=== PATIENT | female | born 1935 | race Two or more races ===

== ENCOUNTER 2016-11-16 17:56 | Emergency (ER) | payer OTHER ==
[~2016-11-16] VITALS: Ht 167.6 cm; Wt 70.8 kg
[2016-11-16 17:59] VITALS: BP 145/67
[2016-11-16] MEDS ORDERED: IBUPROFEN 600 MG TAB PO ONE (20:15)
== END 2016-11-16 20:36 | disposition home or self-care (01) ==
LOC: ER 18:04
DX: S20.211A Contusion of right front wall of thorax, initial encounter (principal); S20.311A Abrasion of right front wall of thorax, initial encounter; V49.9XXA Car occupant (driver) (passenger) injured in unspecified traffic accident, initial encounter; Y93.89 Activity, other specified; Y99.8 Other external cause status; Y92.89 Other specified places as the place of occurrence of the external cause
CPT/HCPCS: 71020